=== PATIENT | male | born 1960 | race African-American/Black ===

== ENCOUNTER 2017-04-22 09:33 | Outpatient (CLI) | payer OTHER ==
[2017-04-22 10:14] LABS: BASOPHILS % (AUTO) 0.6 % (0.0-2.0); EOSINOPHILS # (AUTO) 0.1 K/uL (0.0-0.7); EOSINOPHILS % (AUTO) 2.3 % (0.0-7.0); HEMATOCRIT 46.1 % (40-50); HEMOGLOBIN 15.5 G/DL (14.0-18.0); LYMPHOCYTES # (AUTO) 2.5 K/UL (0.8-4.8); LYMPHOCYTES % (AUTO) 39.1 % (20.5-51.5); MEAN CORPUSCULAR HEMOGLOBIN 28.7 UUG (27.0-31.0); MEAN CORPUSCULAR HGB CONC 34 g/dL (32.0-37.0); MEAN CORPUSCULAR VOLUME 85.4 FL (82.0-92.0); MONOCYTES # (AUTO) 0.4 K/UL (0.1-1.30); MONOCYTES % (AUTO) 6.8 % (0.0-11.0); NEUTROPHILS # (AUTO) 3.5 K/UL (1.8-8.9); NEUTROPHILS % (AUTO) 51.2 % (38.5-71.5); PLATELET COUNT (AUTO) 217 K/UL (150-450); WHITE BLOOD COUNT (AUTO) 6.5 K/UL (4.0-11.2)
[2017-04-22 10:22] LABS: *BILIRUBIN,URIN NEGATIVE (NEGATIVE); *BLOOD, URINE NEGATIVE (NEGATIVE); *CLARITY,URINE SLIGHTLY CLOUDY (CLEAR); *COLOR,URINE YELLOW (YELLOW); *KETONES,URINE NEGATIVE (NEGATIVE); *PROTEIN,URINE NEGATIVE (NEGATIVE); *UROBILINOGEN,URINE 0.2 E.U./dl (NORMAL); LEUKOCYTE ESTERASE ,URINE NEGATIVE (NEGATIVE); NITRITE, URINE NEGATIVE (NEGATIVE)
[2017-04-22 10:25] LABS: POTASSIUM 3.9 mmol/L (3.5-5.1)
[2017-04-22 10:28] LABS: UGLUCOSE 2+ (NEGATIVE)
[2017-04-22 10:30] LABS: BILIRUBIN,TOTAL 0.7 mg/dL (0.2-1.0); TOTAL PROTEIN, SERUM 7.8 g/dL (6.4-8.2)
[2017-04-22 10:41] LABS: BACTERIA,URINE NONE SEEN /HPF (NONE SEEN); RBC,URINE NONE SEEN /HPF (0-3); SQUAMOUS EPITHELIAL CELL,UR MODERATE /HPF (NONE SEEN); WBC,URINE 0-3 /HPF (0-3)
== END 2017-04-22 23:59 | disposition home or self-care (01) ==
LOC: EDBD 09:33 → LAB 09:33
PROVIDERS: ATTEND Internal Medicine
DX: Z01.818 Encounter for other preprocedural examination (principal); G56.01 Carpal tunnel syndrome, right upper limb; M19.011 Primary osteoarthritis, right shoulder; M19.012 Primary osteoarthritis, left shoulder
CPT/HCPCS: 36415; 71010; 85025; 85730; 93005

== ENCOUNTER 2017-04-28 09:54 | Day surgery (SDC) | payer OTHER ==
[2017-04-28] MEDS ORDERED: DEXAMETHASONE SOD PHOSPHATE 4 MG INJ IV ONE (09:55)
[2017-04-28] MEDS ORDERED: PROPOFOL 200 MG/20 ML BOTTLE IV ONE (09:55)
[2017-04-28] MEDS ORDERED: CEFAZOLIN 1 G VIAL IV ONE (09:55)
[2017-04-28] MEDS ORDERED: LIDOCAINE-MPF 2% 5 ML VIAL MC ONE (09:55)
[2017-04-28] MEDS ORDERED: ONDANSETRON 4 MG/2 ML VIAL IV ONE (09:55)
[2017-04-28] MEDS ORDERED: SEVOFLURANE 250 ML BOTTLE IH ONE (09:55)
[2017-04-28] MEDS ORDERED: POLYMYXIN B SULFATE 500,000 UNITS, BACITRACIN 50,000 UNITS, NORMAL SALINE 20 ML MC ONE ×3 (12:00)
[2017-04-28] MEDS ORDERED: BUPIVACAINE PF 0.5% 30 ML VIAL ONE (12:41)
[2017-04-28] MEDS ORDERED: FENTANYL CITRATE 100 MCG/2 ML AMPUL ONE (13:44)
[2017-04-28] MEDS ORDERED: KETOROLAC TROMETHAMINE 30 MG INJ ONE (13:44)
[2017-04-28] MEDS ORDERED: ONDANSETRON 4 MG/2 ML VIAL ONE (14:26)
[2017-04-28] MEDS ORDERED: ACETAMINOPHEN/CODEINE 300-60 MG TABLET ONE (14:51)
== END 2017-04-28 15:31 | disposition home or self-care (01) ==
LOC: EDBD → DS 09:54
PROVIDERS: ATTEND Orthopaedic Surgery
DX: G56.01 Carpal tunnel syndrome, right upper limb (principal); E11.9 Type 2 diabetes mellitus without complications; I63.9 Cerebral infarction, unspecified; G51.0 Bell's palsy; F41.9 Anxiety disorder, unspecified; M54.5 Low back pain; Z98.890 Other specified postprocedural states
CPT/HCPCS: 64721; A4649; A4663; J0690; J1100; J1885; J2405 ×2; J3010; J3490 ×5; J7030